=== PATIENT | female | born 1980 | race Caucasian/White ===

== ENCOUNTER 2017-01-14 15:50 | Emergency (ER) | payer MEDICAID ==
[~2017-01-14] VITALS: Ht 165.1 cm; Wt 118.2 kg
[2017-01-14] MEDS ORDERED: TRAMADOL 50 MG TAB PO (16:43)
[2017-01-14] MEDS ORDERED: TRAMADOL HCL E200 M1 PO (16:43)
[2017-01-14] MEDS ORDERED: METOPROLOL SUC100 M1 PO (16:44)
[2017-01-14] MEDS ORDERED: GABAPENTIN TAB600 MG PO (16:44)
[2017-01-14] MEDS ORDERED: LATANOPROST 2.2.5 ML OU (16:44)
[2017-01-14] MEDS ORDERED: PROAIR HFA0.09 MG/AC IH (16:59)
[2017-01-14] MEDS ORDERED: RT SPIRIVA INH18 MCG (17:00)
[2017-01-14 17:11] VITALS: BP 131/75
== END 2017-01-14 17:16 | disposition home or self-care (01) ==
LOC: ED 15:50
DX: R51 Headache (principal)
CPT/HCPCS: J1885; J2550

== ENCOUNTER → 2017-10-20 | Outpatient (CLI) | payer MEDICAID ==
[2017-04-02 21:46] VITALS: BP 137/86
[~2017-10-20] MED LIST: AMITRIPTYLINE H50 M1 PO; BENTYL 10MG10 MG/CAP PO; GABAPENTIN TAB600 MG PO; LATANOPROST 2.2.5 ML OU; LEVOCETIRIZINE D5 MG PO; METOPROLOL SUC100 M1 PO; NEURONTIN300 MG/CAP; PROAIR HFA0.09 MG/AC IH; RT SPIRIVA INH18 MCG; SYMBICORT1 AE3; TRAMADOL 50 MG TAB PO; TRAMADOL HCL E200 M1 PO; WELLBUTRIN SR150 M2 PO
== END ==
LOC: RAD 16:43
DX: M43.17 Spondylolisthesis, lumbosacral region (principal); R15.9 Full incontinence of feces

== ENCOUNTER 2019-07-04 20:18 | Emergency (ER) | payer MEDICAID ==
[~2019-07-04] VITALS: Ht 165.1 cm; Wt 109.1 kg
[2019-07-04 21:55] VITALS: BP 130/78
== END 2019-07-04 21:55 | disposition home or self-care (01) ==
LOC: ED 20:18
DX: G43.909 Migraine, unspecified, not intractable, without status migrainosus (principal); J45.909 Unspecified asthma, uncomplicated; G62.9 Polyneuropathy, unspecified; Z98.890 Other specified postprocedural states; Z79.51 Long term (current) use of inhaled steroids
CPT/HCPCS: J1885; J2550

== ENCOUNTER 2019-11-16 20:07 | Emergency (ER) | payer MEDICAID ==
[~2019-11-16 20:07] MED LIST changes: -NEURONTIN300 MG/CAP; +NEURONTIN300 MG/CAP PO
[2019-11-16] MEDS ORDERED: BENTYL 20MG20 MG/TAB PO (20:21)
[2019-11-16 20:55] VITALS: BP 143/85
== END 2019-11-16 20:55 | disposition home or self-care (01) ==
LOC: ED 20:07
DX: S00.412A Abrasion of left ear, initial encounter (principal); I10 Essential (primary) hypertension; J45.909 Unspecified asthma, uncomplicated; Z90.89 Acquired absence of other organs; X58.XXXA Exposure to other specified factors, initial encounter

== ENCOUNTER 2021-02-11 19:29 | Emergency (ER) | payer MEDICAID ==
[~2021-02-11] VITALS: Ht 165.1 cm; Wt 108.8 kg
[~2021-02-11 19:29] MED LIST changes: +BENTYL 20MG20 MG/TAB PO
[2021-02-11 22:13] VITALS: BP 128/74
== END 2021-02-11 22:14 | disposition home or self-care (01) ==
LOC: ED 19:29
DX: G43.909 Migraine, unspecified, not intractable, without status migrainosus (principal); I10 Essential (primary) hypertension; J45.909 Unspecified asthma, uncomplicated; F41.9 Anxiety disorder, unspecified; F32.9 Major depressive disorder, single episode, unspecified; Z79.899 Other long term (current) drug therapy
CPT/HCPCS: J1885; J2405